=== PATIENT | female | born 1930 | race Caucasian/White ===

== ENCOUNTER 2019-03-01 20:02 | Inpatient (IN) | payer MEDICARE, MEDICAID ==
[~2019-03-01] VITALS: Ht 157.5 cm; Wt 64.0 kg
[2019-03-01] MEDS ORDERED: ONDANSETRON HCL 4MG/2ML INJ IV STA (20:26)
[2019-03-01] MEDS ORDERED: SODIUM CHLORIDE 0.9% 1,000 ML IV ONE (20:26)
[2019-03-01] MEDS ORDERED: MORPHINE SULFATE 4 MG/ML CPJ (NOT FOR IM USE) IV STA (20:26)
[2019-03-01] MEDS ORDERED: FAMOTIDINE 20MG/2ML VIAL IV ONE (20:30)
[2019-03-01 21:43] LABS: MEAN CORPUSCULAR VOLUME 91.5 fL (81.0-99.0); MEAN PLATELET VOLUME 9.2 fl (7.4-10.4); PLATELET 181 x1000/uL (130-400); RED BLOOD CELL COUNT 2.17 mill/uL (4.2-5.4); RED CELL DISTRIBUTION WIDTH 13.6 % (11.6-14.6)
[2019-03-01 21:45] LABS: HEMATOCRIT. 19.9 % (36.0-48.0); HEMOGLOBIN. 6.7 g/dL (12.0-16.0)
[2019-03-01 21:48] LABS: CHLORIDE 115 mEq/L (98-107)
[2019-03-01 21:54] LABS: INR 1.2; PARTIAL THROMBOPLASTIN TIME 28.5 sec (23.4-31.0); PROTHROMBIN TIME 12.8 sec (9.6-11.0)
[2019-03-01 22:00] LABS: PLATELET ESTIMATE NORMAL
[2019-03-01] MEDS ORDERED: KCL 20MEQ/100ML PREMIX 100 ML IV ONE (22:15)
[2019-03-01] MEDS ORDERED: PANTOPRAZOLE SODIUM 40 MG/VIAL IV NR (22:30)
[2019-03-01] MEDS: PANTOPRAZOLE 80 MG in SODIUM CHLORIDE 0.9% 100 ML IV SCH (23:26)
[2019-03-02] VITALS (91 sets, daily range): BP systolic 65–163; BP diastolic 23–109
[2019-03-02] MEDS ORDERED: ONDANSETRON HCL 4MG/2ML INJ IV PRN (00:15)
[2019-03-02] MEDS: MVI, ADULT NO.1 10 ML, FOLIC ACID 1 MG, THIAMINE HCL 100 MG in SODIUM CHLORIDE 0.9% 1,0... IV NR ×8 (01:21→05:29)
[2019-03-02] MEDS: SODIUM CHLORIDE 0.9% 1,000 ML IV SCH ×2 (04:04→23:31)
[2019-03-02 05:13] LABS: EOSINOPHILS % 0.1 % (0.0-5.0); LYMPHOCYTES % 8.2 % (20.0-50.0); MEAN CORPUSCULAR HEMOGLOBIN 30.6 pg (28.0-32.0); MEAN CORPUSCULAR VOLUME 92.4 fL (81.0-99.0); MEAN PLATELET VOLUME 9.9 fl (7.4-10.4); MONOCYTES % 11.7 % (2.0-8.0); PLATELET 174 x1000/uL (130-400); RED BLOOD CELL COUNT 1.95 mill/uL (4.2-5.4); RED CELL DISTRIBUTION WIDTH 13.6 % (11.6-14.6)
[2019-03-02] MEDS ORDERED: OMEP20TA2 PO (05:27)
[2019-03-02] MEDS ORDERED: LEVO25TA7 PO (05:27)
[2019-03-02] MEDS: PANTOPRAZOLE 80 MG in SODIUM CHLORIDE 0.9% 100 ML IV SCH ×3 (05:29→20:07)
[2019-03-02 05:37] LABS: CREATINE KINASE 184 IU/L (26-192)
[2019-03-02 05:41] LABS: CREATINE KINASE MB FRACTION 2.9 ng/mL (0.5-3.6)
[2019-03-02 06:25] LABS: CHLORIDE 116 mEq/L (98-107)
[2019-03-02] MEDS ORDERED: OCTREOTIDE ACETATE 50 MCG/ML 1ML IV NR (09:00)
[2019-03-02] MEDS: OCTREOTIDE 1,000 MCG in SODIUM CHLORIDE 0.9% 98 ML IV SCH (09:27)
[2019-03-02] MEDS: PIPERACILLIN/TAZ 3.375G PREMIX 50 ML IV SCH ×3 (10:45→21:55)
[2019-03-02 12:16] LABS: BASOPHILS % 0.1 % (0.0-2.0); EOSINOPHILS % 0.3 % (0.0-5.0); HEMATOCRIT. 25.5 % (36.0-48.0); HEMOGLOBIN. 8.8 g/dL (12.0-16.0); LYMPHOCYTES % 8.6 % (20.0-50.0); MEAN CORPUSCULAR HEMOGLOBIN 30.7 pg (28.0-32.0); MEAN CORPUSCULAR VOLUME 89.1 fL (81.0-99.0); MEAN PLATELET VOLUME 9.6 fl (7.4-10.4); MONOCYTES % 10.6 % (2.0-8.0); NEUTROPHILS % 80.4 % (40.0-76.0); PLATELET 164 x1000/uL (130-400); RED BLOOD CELL COUNT 2.86 mill/uL (4.2-5.4); RED CELL DISTRIBUTION WIDTH 14.2 % (11.6-14.6)
[2019-03-02 12:52] LABS: CLARITY URINE CLEAR (CLEAR); COLOR URINE DARK YELLOW (YELLOW); KETONES URINE 1+ (NEGATIVE); LEUKOCYTE ESTERASE URINE NEGATIVE (NEGATIVE); NITRITE URINE NEGATIVE (NEGATIVE); OCCULT BLOOD URINE TRACE (NEGATIVE); PH URINE 5.5 (4.5-8.0); PROTEIN URINE TRACE (NEGATIVE); SPECIFIC GRAVITY URINE 1.027 (1.005-1.030)
[2019-03-02] MEDS ORDERED: BACTERIOSTATIC SODIUM CHLORIDE 0.9% 30ML VIAL IJ ONE (13:28)
[2019-03-02 13:38] LABS: *AMPHETAMINES SCREEN URINE NEGATIVE (NEGATIVE); *BARBITURATES SCREEN URINE NEGATIVE (NEGATIVE); *BENZODIAZEPINES SCREEN URINE NEGATIVE (NEGATIVE); *COCAINE SCREEN URINE NEGATIVE (NEGATIVE)
[2019-03-02 13:39] LABS: METHADONE URINE SCREEN NEGATIVE (NEGATIVE); OPIATES URINE SCREEN NEGATIVE (NEGATIVE); PHENCYCLIDINE URINE SCREEN NEGATIVE (NEGATIVE)
[2019-03-02 13:41] LABS: CANNABINOID URINE SCREEN NEGATIVE (NEGATIVE)
[2019-03-02] MEDS ORDERED: RACEPINEPHRINE 2.25% 0.5ML NEB VIAL HHN PRN (14:45)
[2019-03-02] MEDS: IPRATROPIUM/ALBUTEROL 0.5-3(2.5)MG/3ML NEB INH PRN (14:45)
[2019-03-02] MEDS ORDERED: FENTANYL CITRATE/PF 50MCG/ML 2ML VIAL ONE (15:35)
[2019-03-02] MEDS ORDERED: MIDAZOLAM HCL 5 MG/5 ML VIAL ONE (15:35)
[2019-03-02] MEDS ORDERED: SIMETHICONE 40 MG/0.6 ML 30ML ONE (15:35)
[2019-03-02] MEDS ORDERED: MIDAZOLAM HCL 5 MG/5 ML VIAL IV PRN (16:18)
[2019-03-02] MEDS: PHENYLEPHRINE 40 MG in DEXT 5% WATER 246 ML IV PRN ×2 (16:19→23:33)
[2019-03-02] MEDS ORDERED: SODIUM BICARBONATE 4% (2.4MEQ) 5ML VIAL IV ONE (17:54)
[2019-03-02] MEDS ORDERED: IOHEXOL-300 100 ML BOTTLE ONE (17:54)
[2019-03-02] MEDS ORDERED: LIDOCAINE HCL 1% 20ML VIAL (Pyxis) INJ ONE (17:54)
[2019-03-02 20:38] LABS: HEMATOCRIT. 30.8 % (36.0-48.0); HEMOGLOBIN. 10.8 g/dL (12.0-16.0); MEAN CORPUSCULAR HEMOGLOBIN 31.1 pg (28.0-32.0); MEAN CORPUSCULAR VOLUME 88.9 fL (81.0-99.0); MEAN PLATELET VOLUME 8.7 fl (7.4-10.4); PLATELET 162 x1000/uL (130-400); RED BLOOD CELL COUNT 3.47 mill/uL (4.2-5.4); RED CELL DISTRIBUTION WIDTH 14.8 % (11.6-14.6)
[2019-03-02 20:52] LABS: CREATINE KINASE MB FRACTION 2.6 ng/mL (0.5-3.6)
[2019-03-02 21:01] LABS: NUCLEATED RED BLOOD CELLS 5 /100 WBC; PLATELET ESTIMATE NORMAL
[2019-03-03] VITALS (93 sets, daily range): BP systolic 62–137; BP diastolic 32–77
[2019-03-03] MEDS: ACETAMINOPHEN 650MG SUPP PR PRN (00:25)
[2019-03-03] MEDS: PANTOPRAZOLE 80 MG in SODIUM CHLORIDE 0.9% 100 ML IV SCH ×3 (02:48→20:34)
[2019-03-03] MEDS: PIPERACILLIN/TAZ 3.375G PREMIX 50 ML IV SCH ×4 (04:01→20:57)
[2019-03-03] MEDS: OCTREOTIDE 1,000 MCG in SODIUM CHLORIDE 0.9% 98 ML IV SCH (04:01)
[2019-03-03] MEDS: SODIUM CHLORIDE 0.9% 1,000 ML IV SCH (04:02)
[2019-03-03 06:50] LABS: BASOPHILS % 0.1 % (0.0-2.0); EOSINOPHILS % 0.1 % (0.0-5.0); HEMATOCRIT. 27.2 % (36.0-48.0); HEMOGLOBIN. 9.4 g/dL (12.0-16.0); LYMPHOCYTES % 7.4 % (20.0-50.0); MEAN CORPUSCULAR HEMOGLOBIN 31.1 pg (28.0-32.0); MEAN CORPUSCULAR VOLUME 89.6 fL (81.0-99.0); MEAN PLATELET VOLUME 9.8 fl (7.4-10.4); MONOCYTES % 7.1 % (2.0-8.0); NEUTROPHILS % 85.3 % (40.0-76.0); PLATELET 139 x1000/uL (130-400); RED BLOOD CELL COUNT 3.03 mill/uL (4.2-5.4); RED CELL DISTRIBUTION WIDTH 14.9 % (11.6-14.6)
[2019-03-03 06:57] LABS: CHLORIDE 120 mEq/L (98-107)
[2019-03-03 07:03] LABS: LDL CHOLESTEROL 31 mg/dL (5-100)
[2019-03-03 07:05] LABS: HDL CHOLESTEROL 32 mg/dL (40-59)
[2019-03-03] MEDS: SODIUM CHLORIDE 0.45% 1,000 ML IV SCH ×2 (08:31→20:57)
[2019-03-03] MEDS ORDERED: KCL 20MEQ/100ML PREMIX 100 ML IV SCH (09:00)
[2019-03-03] MEDS: PHENYLEPHRINE 40 MG in DEXT 5% WATER 246 ML IV PRN ×2 (10:57→22:22)
[2019-03-03] MEDS: MORPHINE SULFATE 2 MG/ML CPJ (NOT FOR IM USE) IV PRN (22:05)
[2019-03-04] VITALS (97 sets, daily range): BP systolic 81–134; BP diastolic 37–95
[2019-03-04] MEDS: OCTREOTIDE 1,000 MCG in SODIUM CHLORIDE 0.9% 98 ML IV SCH ×2 (00:35→21:03)
[2019-03-04] MEDS: PIPERACILLIN/TAZ 3.375G PREMIX 50 ML IV SCH ×4 (04:53→21:03)
[2019-03-04] MEDS: SODIUM CHLORIDE 0.45% 1,000 ML IV SCH ×2 (04:53→15:14)
[2019-03-04 05:17] LABS: BASOPHILS % 0.1 % (0.0-2.0); EOSINOPHILS % 2.8 % (0.0-5.0); HEMATOCRIT. 26.9 % (36.0-48.0); HEMOGLOBIN. 9.2 g/dL (12.0-16.0); LYMPHOCYTES % 7.2 % (20.0-50.0); MEAN CORPUSCULAR HEMOGLOBIN 30.7 pg (28.0-32.0); MEAN PLATELET VOLUME 9.3 fl (7.4-10.4); MONOCYTES % 7.8 % (2.0-8.0); NEUTROPHILS % 82.1 % (40.0-76.0); PLATELET 164 x1000/uL (130-400); RED BLOOD CELL COUNT 2.99 mill/uL (4.2-5.4); RED CELL DISTRIBUTION WIDTH 15.1 % (11.6-14.6)
[2019-03-04 05:29] LABS: CHLORIDE 116 mEq/L (98-107)
[2019-03-04] MEDS: PANTOPRAZOLE 80 MG in SODIUM CHLORIDE 0.9% 100 ML IV SCH ×2 (06:54→18:02)
[2019-03-04] MEDS: PHENYLEPHRINE 40 MG in DEXT 5% WATER 246 ML IV PRN (09:10)
[2019-03-04] MEDS ORDERED: POTASSIUM CHLORIDE INJ 40 MEQ in DEXT 5% WATER 250 ML IV SCH (11:00)
[2019-03-04] MEDS ORDERED: MIDAZOLAM HCL 5 MG/5 ML VIAL ONE (12:21)
[2019-03-04] MEDS ORDERED: FENTANYL CITRATE/PF 50MCG/ML 2ML VIAL ONE (12:21)
[2019-03-04] MEDS ORDERED: MIDAZOLAM HCL 5 MG/5 ML VIAL IV NR (12:40)
[2019-03-04] MEDS ORDERED: BACTERIOSTATIC SODIUM CHLORIDE 0.9% 30ML VIAL IJ ONE (13:20)
[2019-03-04] MEDS: MORPHINE SULFATE 2 MG/ML CPJ (NOT FOR IM USE) IV PRN (16:19)
[2019-03-05] VITALS (89 sets, daily range): BP systolic 84–137; BP diastolic 35–104
[2019-03-05] MEDS: PANTOPRAZOLE 80 MG in SODIUM CHLORIDE 0.9% 100 ML IV SCH ×2 (03:16→14:58)
[2019-03-05] MEDS: PIPERACILLIN/TAZ 3.375G PREMIX 50 ML IV SCH ×4 (04:52→21:15)
[2019-03-05] MEDS: SODIUM CHLORIDE 0.45% 1,000 ML IV SCH ×2 (05:13→14:59)
[2019-03-05] MEDS: PHENYLEPHRINE 40 MG in DEXT 5% WATER 246 ML IV PRN (05:13)
[2019-03-05 05:33] LABS: HEMATOCRIT. 25.2 % (36.0-48.0); HEMOGLOBIN. 8.7 g/dL (12.0-16.0); MEAN CORPUSCULAR HEMOGLOBIN 30.9 pg (28.0-32.0); MEAN CORPUSCULAR VOLUME 89.7 fL (81.0-99.0); MEAN PLATELET VOLUME 8.9 fl (7.4-10.4); PLATELET 186 x1000/uL (130-400); RED BLOOD CELL COUNT 2.81 mill/uL (4.2-5.4); RED CELL DISTRIBUTION WIDTH 15.3 % (11.6-14.6)
[2019-03-05 05:43] LABS: CHLORIDE 110 mEq/L (98-107)
[2019-03-05] MEDS ORDERED: IOHEXOL-300 50 ML BOTTLE IV ONE (09:38)
[2019-03-05] MEDS ORDERED: IOHEXOL-300 100 ML BOTTLE ONE (09:41)
[2019-03-05] MEDS: SUCRALFATE 1 G/10 ML UDC PO SCH ×3 (12:29→21:14)
[2019-03-05 14:37] LABS: PLATELET ESTIMATE NORMAL
[2019-03-05] MEDS: BUDESONIDE 0.5MG/2ML NEB HHN SCH ×2 (14:44→20:45)
[2019-03-05] MEDS: IPRATROPIUM/ALBUTEROL 0.5-3(2.5)MG/3ML NEB HHN SCH ×2 (14:44→20:45)
[2019-03-05] MEDS: FLUCONAZOLE 200 MG/100ML BAG 100 ML IV SCH (16:24)
[2019-03-06] VITALS (37 sets, daily range): BP systolic 106–149; BP diastolic 38–76
[2019-03-06] MEDS: PANTOPRAZOLE 80 MG in SODIUM CHLORIDE 0.9% 100 ML IV SCH ×3 (00:19→18:46)
[2019-03-06] MEDS: SODIUM CHLORIDE 0.45% 1,000 ML IV SCH ×2 (00:19→14:30)
[2019-03-06] MEDS: IPRATROPIUM/ALBUTEROL 0.5-3(2.5)MG/3ML NEB HHN SCH ×4 (00:48→20:30)
[2019-03-06] MEDS: PIPERACILLIN/TAZ 3.375G PREMIX 50 ML IV SCH ×4 (03:48→21:13)
[2019-03-06 06:35] LABS: HEMATOCRIT. 26.1 % (36.0-48.0); HEMOGLOBIN. 8.6 g/dL (12.0-16.0); MEAN CORPUSCULAR HEMOGLOBIN 29.9 pg (28.0-32.0); MEAN CORPUSCULAR VOLUME 91.3 fL (81.0-99.0); MEAN PLATELET VOLUME 8.9 fl (7.4-10.4); PLATELET 205 x1000/uL (130-400); RED BLOOD CELL COUNT 2.86 mill/uL (4.2-5.4); RED CELL DISTRIBUTION WIDTH 14.9 % (11.6-14.6)
[2019-03-06 07:26] LABS: CHLORIDE 108 mEq/L (98-107)
[2019-03-06] MEDS: SUCRALFATE 1 G/10 ML UDC PO SCH ×4 (07:47→21:13)
[2019-03-06] MEDS: BUDESONIDE 0.5MG/2ML NEB HHN SCH ×2 (08:39→20:29)
[2019-03-06] MEDS ORDERED: POTASSIUM CHLORIDE 20MEQ TABLET SR PO NR (10:04)
[2019-03-06 12:22] LABS: PLATELET ESTIMATE NORMAL
[2019-03-06] MEDS: IPRATROPIUM/ALBUTEROL 0.5-3(2.5)MG/3ML NEB INH PRN (12:31)
[2019-03-06] MEDS: FLUCONAZOLE 200 MG/100ML BAG 100 ML IV SCH (15:15)
[2019-03-07] VITALS (20 sets, daily range): BP systolic 81–146; BP diastolic 44–67
[2019-03-07] MEDS: IPRATROPIUM/ALBUTEROL 0.5-3(2.5)MG/3ML NEB HHN SCH ×4 (00:22→20:55)
[2019-03-07] MEDS: SODIUM CHLORIDE 0.45% 1,000 ML IV SCH ×2 (01:48→16:59)
[2019-03-07] MEDS: IPRATROPIUM/ALBUTEROL 0.5-3(2.5)MG/3ML NEB INH PRN (03:20)
[2019-03-07] MEDS: PIPERACILLIN/TAZ 3.375G PREMIX 50 ML IV SCH ×4 (04:20→21:22)
[2019-03-07 05:17] LABS: HIV SCREEN 4G Non Reactive (Non Reactive)
[2019-03-07] MEDS: PANTOPRAZOLE 80 MG in SODIUM CHLORIDE 0.9% 100 ML IV SCH (05:31)
[2019-03-07 05:53] LABS: HEMATOCRIT. 27.3 % (36.0-48.0); HEMOGLOBIN. 9.3 g/dL (12.0-16.0); MEAN CORPUSCULAR HEMOGLOBIN 30.6 pg (28.0-32.0); MEAN CORPUSCULAR VOLUME 89.7 fL (81.0-99.0); MEAN PLATELET VOLUME 8.6 fl (7.4-10.4); PLATELET 263 x1000/uL (130-400); RED BLOOD CELL COUNT 3.05 mill/uL (4.2-5.4); RED CELL DISTRIBUTION WIDTH 14.5 % (11.6-14.6)
[2019-03-07 06:07] LABS: CHLORIDE 101 mEq/L (98-107)
[2019-03-07] MEDS: BUDESONIDE 0.5MG/2ML NEB HHN SCH ×2 (07:51→20:55)
[2019-03-07] MEDS: SUCRALFATE 1 G/10 ML UDC PO SCH ×4 (09:04→21:18)
[2019-03-07] MEDS ORDERED: POTASSIUM CHLORIDE 20MEQ TABLET SR PO NR (10:15)
[2019-03-07] MEDS ORDERED: POTASSIUM CHLORIDE INJ 40 MEQ in DEXT 5% WATER 250 ML IV NR (12:00)
[2019-03-07] MEDS: FLUCONAZOLE 200 MG/100ML BAG 100 ML IV SCH (14:50)
[2019-03-07 15:26] LABS: PLATELET ESTIMATE NORMAL
[2019-03-08] VITALS: BP 126/52
[2019-03-08] MEDS: IPRATROPIUM/ALBUTEROL 0.5-3(2.5)MG/3ML NEB HHN SCH ×4 (02:20→19:56)
[2019-03-08 04:00] VITALS: BP 123/55
[2019-03-08] MEDS: PIPERACILLIN/TAZ 3.375G PREMIX 50 ML IV SCH ×3 (04:17→16:41)
[2019-03-08] MEDS: SODIUM CHLORIDE 0.45% 1,000 ML IV SCH ×2 (04:17→19:34)
[2019-03-08] MEDS: OMEPRAZOLE 20MG CAPSULE EXTENDED RELEASE PO SCH (06:25)
[2019-03-08] MEDS: SUCRALFATE 1 G/10 ML UDC PO SCH ×4 (06:25→21:00)
[2019-03-08 06:36] LABS: HEMATOCRIT. 25.2 % (36.0-48.0); HEMOGLOBIN. 8.7 g/dL (12.0-16.0); MEAN CORPUSCULAR HEMOGLOBIN 30.5 pg (28.0-32.0); MEAN CORPUSCULAR VOLUME 88.3 fL (81.0-99.0); MEAN PLATELET VOLUME 8.6 fl (7.4-10.4); PLATELET 314 x1000/uL (130-400); RED BLOOD CELL COUNT 2.86 mill/uL (4.2-5.4); RED CELL DISTRIBUTION WIDTH 14.4 % (11.6-14.6)
[2019-03-08 06:38] LABS: CHLORIDE 100 mEq/L (98-107)
[2019-03-08 08:00] VITALS: BP 129/52
[2019-03-08] MEDS: BUDESONIDE 0.5MG/2ML NEB HHN SCH (08:55)
[2019-03-08] MEDS ORDERED: POTASSIUM CHLORIDE 20MEQ TABLET SR PO NR (09:00)
[2019-03-08] MEDS ORDERED: POTASSIUM CHLORIDE INJ 40 MEQ in DEXT 5% WATER 250 ML IV NR (09:30)
[2019-03-08 12:00] VITALS: BP 132/53
[2019-03-08] MEDS: FLUCONAZOLE 200 MG/100ML BAG 100 ML IV SCH (15:25)
[2019-03-08 15:59] LABS: PHOSPHORUS 1.5 mg/dL (2.5-4.9)
[2019-03-08 16:24] VITALS: BP 119/51
[2019-03-08 17:33] LABS: PLATELET ESTIMATE NORMAL
[2019-03-08] MEDS: CEFTRIAXONE 1 G PREMIX 50 ML IV SCH (18:40)
[2019-03-08 20:00] VITALS: BP 126/52
[2019-03-08] MEDS: GUAIFENESIN 600MG ER TABLET PO SCH (21:00)
[2019-03-08] MEDS ORDERED: POTASSIUM CHLORIDE INJ 40 MEQ in DEXT 5% WATER 250 ML IV SCH (23:00)
[2019-03-09] VITALS (7 sets, daily range): BP systolic 118–131; BP diastolic 50–59
[2019-03-09] MEDS: IPRATROPIUM/ALBUTEROL 0.5-3(2.5)MG/3ML NEB HHN SCH ×5 (02:16→20:52)
[2019-03-09] MEDS: OMEPRAZOLE 20MG CAPSULE EXTENDED RELEASE PO SCH (06:21)
[2019-03-09] MEDS: SUCRALFATE 1 G/10 ML UDC PO SCH ×4 (06:21→20:06)
[2019-03-09 06:39] LABS: HEMATOCRIT. 26.2 % (36.0-48.0); MEAN CORPUSCULAR HEMOGLOBIN 30.3 pg (28.0-32.0); MEAN CORPUSCULAR VOLUME 88.7 fL (81.0-99.0); MEAN PLATELET VOLUME 8.3 fl (7.4-10.4); PLATELET 356 x1000/uL (130-400); RED BLOOD CELL COUNT 2.96 mill/uL (4.2-5.4); RED CELL DISTRIBUTION WIDTH 14.4 % (11.6-14.6)
[2019-03-09 07:56] LABS: CHLORIDE 100 mEq/L (98-107)
[2019-03-09 08:14] LABS: PHOSPHORUS 1.5 mg/dL (2.5-4.9)
[2019-03-09] MEDS: GUAIFENESIN 600MG ER TABLET PO SCH ×2 (08:30→20:06)
[2019-03-09 08:34] LABS: CLARITY URINE CLEAR (CLEAR); COLOR URINE YELLOW (YELLOW); KETONES URINE TRACE (NEGATIVE); LEUKOCYTE ESTERASE URINE NEGATIVE (NEGATIVE); NITRITE URINE NEGATIVE (NEGATIVE); OCCULT BLOOD URINE TRACE (NEGATIVE); PH URINE >=9.0 (4.5-8.0); PROTEIN URINE NEGATIVE (NEGATIVE); SPECIFIC GRAVITY URINE 1.008 (1.005-1.030)
[2019-03-09] MEDS ORDERED: POTASSIUM PHOS,M-BASIC-D-BASIC 20 MMOL in DEXT 5% WATER 243.3333 ML IV NR (10:30)
[2019-03-09 10:35] LABS: BG CARBOXYHEMOGLOBIN 0.3 % (0.5-1.5); BG DEOXYHEMOGLOBIN 6.5 % (0.0-5.0); BG HCO3 ACT 31.6 mmol/L (22.0-26.0); BG METHEMOGLOBIN 0.1 % (0.0-1.5); BG OXYGEN SATURATION 93.5 % (92.0-98.5); BG OXYHEMOGLOBIN 93.1 % (94.0-97.0); BG PH 7.515 (7.350-7.450); BG PO2 62.8 mmHg (75.0-100.0); BG SAMPLE SITE RIGHT RADIAL; BG TOTAL HEMOGLOBIN 10.4 g/dL (12.0-18.0); BG VENT MODE NASAL CANNULA
[2019-03-09] MEDS: FLUCONAZOLE 200 MG/100ML BAG 100 ML IV SCH (15:15)
[2019-03-09] MEDS: CEFTRIAXONE 1 G PREMIX 50 ML IV SCH (18:42)
[2019-03-09] MEDS: ACETAMINOPHEN 650MG SUPP PR PRN (20:06)
[2019-03-09] MEDS: BUDESONIDE 0.5MG/2ML NEB HHN SCH (20:52)
[2019-03-09] MEDS: ACETYLCYSTEINE 100MG/ML 10% VIAL 4ML INH SCH (20:52)
[2019-03-10] VITALS (7 sets, daily range): BP systolic 112–134; BP diastolic 51–61
[2019-03-10] MEDS: SODIUM CHLORIDE 0.45% 1,000 ML IV SCH ×2 (00:03→17:35)
[2019-03-10] MEDS: IPRATROPIUM/ALBUTEROL 0.5-3(2.5)MG/3ML NEB HHN SCH ×4 (01:09→21:44)
[2019-03-10 04:48] LABS: PLATELET ESTIMATE NORMAL
[2019-03-10 05:54] LABS: CHLORIDE 103 mEq/L (98-107)
[2019-03-10 06:00] LABS: HEMATOCRIT. 24.9 % (36.0-48.0); HEMOGLOBIN. 8.3 g/dL (12.0-16.0); MEAN CORPUSCULAR HEMOGLOBIN 30.1 pg (28.0-32.0); MEAN CORPUSCULAR VOLUME 89.9 fL (81.0-99.0); MEAN PLATELET VOLUME 8.3 fl (7.4-10.4); PLATELET 384 x1000/uL (130-400); RED BLOOD CELL COUNT 2.77 mill/uL (4.2-5.4); RED CELL DISTRIBUTION WIDTH 14.8 % (11.6-14.6)
[2019-03-10 06:05] LABS: PHOSPHORUS 3.3 mg/dL (2.5-4.9)
[2019-03-10] MEDS: OMEPRAZOLE 20MG CAPSULE EXTENDED RELEASE PO SCH (06:33)
[2019-03-10] MEDS: SUCRALFATE 1 G/10 ML UDC PO SCH ×4 (06:33→20:47)
[2019-03-10] MEDS: ACETYLCYSTEINE 100MG/ML 10% VIAL 4ML INH SCH (09:54)
[2019-03-10] MEDS: BUDESONIDE 0.5MG/2ML NEB HHN SCH ×2 (09:55→21:43)
[2019-03-10 10:09] LABS: BG BASE EXCESS 5.2 mmol/L (-2.0-2.0); BG FRACTION INSPIRED OXYGEN 21; BG METHEMOGLOBIN 0.4 % (0.0-1.5); BG OXYHEMOGLOBIN 87.6 % (94.0-97.0); BG PCO2 39.5 mmHg (35.0-45.0); BG PH 7.484 (7.350-7.450); BG PO2 50.2 mmHg (75.0-100.0); BG SAMPLE SITE RIGHT BRACHIAL; BG TOTAL HEMOGLOBIN 9.9 g/dL (12.0-18.0); BG VENT MODE ROOM AIR
[2019-03-10] MEDS: LEVOFLOXACIN 250MG PREMIX 50 ML IV SCH (10:34)
[2019-03-10] MEDS: POTASSIUM CHLORIDE 20MEQ/PACKET PO SCH ×2 (10:36→17:28)
[2019-03-10] MEDS: GUAIFENESIN 600MG ER TABLET PO SCH ×2 (10:40→20:47)
[2019-03-10 12:57] LABS: NUCLEATED RED BLOOD CELLS 1 /100 WBC; PLATELET ESTIMATE NORMAL
[2019-03-10] MEDS: FLUCONAZOLE 200 MG/100ML BAG 100 ML IV SCH (14:57)
[2019-03-10] MEDS ORDERED: FAMOTIDINE 20MG TABLET PO SCH (21:00)
[2019-03-10] MEDS ORDERED: POTASSIUM CHLORIDE 20MEQ/PACKET PO NR (22:30)
[2019-03-11] VITALS (7 sets, daily range): BP systolic 103–128; BP diastolic 51–88
[2019-03-11] MEDS: IPRATROPIUM/ALBUTEROL 0.5-3(2.5)MG/3ML NEB HHN SCH ×3 (01:27→12:56)
[2019-03-11] MEDS: LEVOTHYROXINE SODIUM 25MCG TABLET PO SCH (06:23)
[2019-03-11] MEDS: SUCRALFATE 1 G/10 ML UDC PO SCH ×4 (06:23→20:46)
[2019-03-11] MEDS ORDERED: DESMOPRESSIN ACETATE 4MCG/ML AMP SUBCUT SCH (08:00)
[2019-03-11 08:06] LABS: BASOPHILS % 0.5 % (0.0-2.0); EOSINOPHILS % 4.5 % (0.0-5.0); HEMOGLOBIN. 8.9 g/dL (12.0-16.0); LYMPHOCYTES % 9.4 % (20.0-50.0); MEAN CORPUSCULAR HEMOGLOBIN 30.7 pg (28.0-32.0); MEAN CORPUSCULAR VOLUME 89.4 fL (81.0-99.0); MEAN PLATELET VOLUME 8.3 fl (7.4-10.4); MONOCYTES % 5.6 % (2.0-8.0); PLATELET 444 x1000/uL (130-400); RED BLOOD CELL COUNT 2.91 mill/uL (4.2-5.4); RED CELL DISTRIBUTION WIDTH 14.5 % (11.6-14.6)
[2019-03-11 08:22] LABS: CHLORIDE 104 mEq/L (98-107)
[2019-03-11] MEDS: ACETYLCYSTEINE 100MG/ML 10% VIAL 4ML INH SCH (08:44)
[2019-03-11] MEDS: BUDESONIDE 0.5MG/2ML NEB HHN SCH ×2 (08:44→20:39)
[2019-03-11] MEDS: SODIUM CHLORIDE 0.45% 1,000 ML IV SCH ×2 (09:47→20:40)
[2019-03-11] MEDS: LEVOFLOXACIN 250MG PREMIX 50 ML IV SCH (09:48)
[2019-03-11] MEDS: POTASSIUM CHLORIDE 20MEQ/PACKET PO SCH ×2 (09:49→18:02)
[2019-03-11] MEDS: GUAIFENESIN 600MG ER TABLET PO SCH ×2 (09:49→20:46)
[2019-03-11] MEDS ORDERED: THROAT LOZENGES-BENZOCAINE/MENTH/CETYLPYRD CL LOZENGES MM PRN (16:15)
[2019-03-11] MEDS: OMEPRAZOLE 20MG CAPSULE EXTENDED RELEASE PO SCH (18:03)
[2019-03-11] MEDS: IPRATROPIUM/ALBUTEROL 0.5-3(2.5)MG/3ML NEB INH PRN (20:38)
[2019-03-12] VITALS: BP 128/57
[2019-03-12 04:00] VITALS: BP 115/51
[2019-03-12 06:08] LABS: BASOPHILS % 0.5 % (0.0-2.0); EOSINOPHILS % 4.8 % (0.0-5.0); HEMATOCRIT. 26.7 % (36.0-48.0); HEMOGLOBIN. 9.1 g/dL (12.0-16.0); LYMPHOCYTES % 8.7 % (20.0-50.0); MEAN CORPUSCULAR HEMOGLOBIN 30.3 pg (28.0-32.0); MEAN CORPUSCULAR VOLUME 89.4 fL (81.0-99.0); MEAN PLATELET VOLUME 8.2 fl (7.4-10.4); MONOCYTES % 7.1 % (2.0-8.0); NEUTROPHILS % 78.9 % (40.0-76.0); PLATELET 484 x1000/uL (130-400); RED BLOOD CELL COUNT 2.99 mill/uL (4.2-5.4); RED CELL DISTRIBUTION WIDTH 14.6 % (11.6-14.6)
[2019-03-12 06:39] LABS: CHLORIDE 96 mEq/L (98-107)
[2019-03-12] MEDS: OMEPRAZOLE 20MG CAPSULE EXTENDED RELEASE PO SCH ×2 (06:47→18:39)
[2019-03-12] MEDS: LEVOTHYROXINE SODIUM 25MCG TABLET PO SCH (06:47)
[2019-03-12] MEDS: SUCRALFATE 1 G/10 ML UDC PO SCH ×4 (06:47→21:18)
[2019-03-12] MEDS: GUAIFENESIN 600MG ER TABLET PO SCH ×2 (08:42→21:18)
[2019-03-12] MEDS: SODIUM CHLORIDE 0.9% 1,000 ML IV SCH ×2 (08:43→21:19)
[2019-03-12] MEDS: LEVOFLOXACIN 250MG PREMIX 50 ML IV SCH (08:43)
[2019-03-12] MEDS: IPRATROPIUM/ALBUTEROL 0.5-3(2.5)MG/3ML NEB INH PRN ×3 (09:10→20:56)
[2019-03-12] MEDS: BUDESONIDE 0.5MG/2ML NEB HHN SCH ×2 (09:10→20:58)
[2019-03-12 12:00] VITALS: BP 114/50
[2019-03-12 16:00] VITALS: BP 102/49
[2019-03-12 20:00] VITALS: BP 115/49
[2019-03-12 20:16] VITALS: BP 115/49
[2019-03-13] VITALS: BP 99/51
[2019-03-13 04:00] VITALS: BP 120/51
[2019-03-13] MEDS: SUCRALFATE 1 G/10 ML UDC PO SCH ×4 (05:31→20:53)
[2019-03-13] MEDS: OMEPRAZOLE 20MG CAPSULE EXTENDED RELEASE PO SCH ×2 (05:31→17:07)
[2019-03-13] MEDS: LEVOTHYROXINE SODIUM 25MCG TABLET PO SCH (05:31)
[2019-03-13 07:09] LABS: CHLORIDE 103 mEq/L (98-107)
[2019-03-13 07:36] LABS: BASOPHILS % 0.7 % (0.0-2.0); EOSINOPHILS % 3.5 % (0.0-5.0); HEMATOCRIT. 31.4 % (36.0-48.0); HEMOGLOBIN. 10.6 g/dL (12.0-16.0); LYMPHOCYTES % 7.5 % (20.0-50.0); MEAN CORPUSCULAR HEMOGLOBIN 30.1 pg (28.0-32.0); MEAN CORPUSCULAR VOLUME 89.4 fL (81.0-99.0); MEAN PLATELET VOLUME 8.2 fl (7.4-10.4); NEUTROPHILS % 81.3 % (40.0-76.0); PLATELET 511 x1000/uL (130-400); RED BLOOD CELL COUNT 3.52 mill/uL (4.2-5.4); RED CELL DISTRIBUTION WIDTH 14.3 % (11.6-14.6)
[2019-03-13 08:00] VITALS: BP 114/45
[2019-03-13] MEDS: GUAIFENESIN 600MG ER TABLET PO SCH ×2 (08:16→20:53)
[2019-03-13] MEDS: LEVOFLOXACIN 250MG PREMIX 50 ML IV SCH (08:16)
[2019-03-13 12:00] VITALS: BP 100/50
[2019-03-13 16:00] VITALS: BP 140/54
[2019-03-13 20:00] VITALS: BP 124/58
[2019-03-14] VITALS: BP 119/64
[2019-03-14 04:00] VITALS: BP 113/55
[2019-03-14] MEDS: SUCRALFATE 1 G/10 ML UDC PO SCH ×4 (05:58→21:17)
[2019-03-14] MEDS: LEVOTHYROXINE SODIUM 25MCG TABLET PO SCH (05:58)
[2019-03-14] MEDS: OMEPRAZOLE 20MG CAPSULE EXTENDED RELEASE PO SCH ×2 (05:59→16:58)
[2019-03-14 07:04] LABS: BASOPHILS % 1.4 % (0.0-2.0); EOSINOPHILS % 4.5 % (0.0-5.0); HEMATOCRIT. 28.7 % (36.0-48.0); HEMOGLOBIN. 9.7 g/dL (12.0-16.0); LYMPHOCYTES % 10.5 % (20.0-50.0); MEAN CORPUSCULAR VOLUME 88.8 fL (81.0-99.0); NEUTROPHILS % 71.6 % (40.0-76.0); PLATELET 445 x1000/uL (130-400); RED BLOOD CELL COUNT 3.23 mill/uL (4.2-5.4); RED CELL DISTRIBUTION WIDTH 14.4 % (11.6-14.6)
[2019-03-14 07:54] LABS: CHLORIDE 100 mEq/L (98-107)
[2019-03-14 08:00] LABS: PHOSPHORUS 2.9 mg/dL (2.5-4.9)
[2019-03-14] MEDS: LEVOFLOXACIN 250MG PREMIX 50 ML IV SCH (08:20)
[2019-03-14] MEDS: GUAIFENESIN 600MG ER TABLET PO SCH ×2 (08:20→21:17)
[2019-03-14 12:00] VITALS: BP 118/58
[2019-03-14 16:00] VITALS: BP 107/54
[2019-03-14 20:00] VITALS: BP 98/47
[2019-03-15] VITALS: BP 99/44
[2019-03-15 04:00] VITALS: BP 96/42
[2019-03-15] MEDS: LEVOTHYROXINE SODIUM 25MCG TABLET PO SCH (06:13)
[2019-03-15] MEDS: OMEPRAZOLE 20MG CAPSULE EXTENDED RELEASE PO SCH ×2 (06:13→17:25)
[2019-03-15] MEDS: SUCRALFATE 1 G/10 ML UDC PO SCH ×4 (06:13→22:30)
[2019-03-15 08:00] VITALS: BP 108/47
[2019-03-15] MEDS: GUAIFENESIN 600MG ER TABLET PO SCH ×2 (08:00→22:31)
[2019-03-15] MEDS: LEVOFLOXACIN 250MG PREMIX 50 ML IV SCH (08:00)
[2019-03-15] MEDS: IPRATROPIUM/ALBUTEROL 0.5-3(2.5)MG/3ML NEB INH PRN (09:44)
[2019-03-15 10:26] LABS: HEMATOCRIT 26.9 % (36.0-48.0); MEAN CORPUSCULAR VOLUME 89.1 fL (81.0-99.0); PLATELET 378 x1000/uL (130-400); RED BLOOD CELL COUNT 3.01 mill/uL (4.2-5.4); RED CELL DISTRIBUTION WIDTH 14.4 % (11.6-14.6)
[2019-03-15 10:41] LABS: CHLORIDE 97 mEq/L (98-107)
[2019-03-15 12:00] VITALS: BP 115/39
[2019-03-15 13:34] LABS: BG BASE EXCESS 1.4 mmol/L (-2.0-2.0); BG CARBOXYHEMOGLOBIN 0.3 % (0.5-1.5); BG DEOXYHEMOGLOBIN 9.6 % (0.0-5.0); BG FRACTION INSPIRED OXYGEN 21; BG HCO3 ACT 24.9 mmol/L (22.0-26.0); BG METHEMOGLOBIN 0.3 % (0.0-1.5); BG OXYGEN SATURATION 90.3 % (92.0-98.5); BG OXYHEMOGLOBIN 89.8 % (94.0-97.0); BG PCO2 35.2 mmHg (35.0-45.0); BG PH 7.468 (7.350-7.450); BG PO2 55.4 mmHg (75.0-100.0); BG SAMPLE SITE RIGHT BRACHIAL; BG TOTAL HEMOGLOBIN 9.8 g/dL (12.0-18.0); BG VENT MODE ROOM AIR
[2019-03-15 15:44] VITALS: BP 105/51
[2019-03-15 20:00] VITALS: BP 100/66
[2019-03-16] VITALS: BP_SYST 100; BP_SYST 102; BP_DIAS 57; BP_DIAS 58
[2019-03-16 05:56] LABS: CHLORIDE 100 mEq/L (98-107)
[2019-03-16] MEDS: LEVOTHYROXINE SODIUM 25MCG TABLET PO SCH (06:17)
[2019-03-16] MEDS: SUCRALFATE 1 G/10 ML UDC PO SCH ×4 (06:17→20:57)
[2019-03-16] MEDS: OMEPRAZOLE 20MG CAPSULE EXTENDED RELEASE PO SCH ×2 (06:18→16:57)
[2019-03-16 06:27] LABS: HEMOGLOBIN. 8.9 g/dL (12.0-16.0); MEAN CORPUSCULAR HEMOGLOBIN 30.3 pg (28.0-32.0); MEAN CORPUSCULAR VOLUME 88.6 fL (81.0-99.0); MEAN PLATELET VOLUME 8.3 fl (7.4-10.4); PLATELET 388 x1000/uL (130-400); RED BLOOD CELL COUNT 2.93 mill/uL (4.2-5.4); RED CELL DISTRIBUTION WIDTH 14.3 % (11.6-14.6)
[2019-03-16 08:00] VITALS: BP 96/45
[2019-03-16] MEDS: GUAIFENESIN 600MG ER TABLET PO SCH ×2 (08:37→20:57)
[2019-03-16] MEDS: LEVOFLOXACIN 250MG PREMIX 50 ML IV SCH (08:37)
[2019-03-16] MEDS: IPRATROPIUM/ALBUTEROL 0.5-3(2.5)MG/3ML NEB INH PRN ×3 (09:09→16:33)
[2019-03-16 09:55] LABS: PLATELET ESTIMATE NORMAL
[2019-03-16 12:29] VITALS: BP 104/44
[2019-03-16 16:32] VITALS: BP 104/43
[2019-03-16 20:00] VITALS: BP_SYST 104; BP_SYST 105; BP_DIAS 50; BP_DIAS 52
[2019-03-17] VITALS (8 sets, daily range): BP systolic 91–120; BP diastolic 46–75
[2019-03-17] MEDS: LEVOTHYROXINE SODIUM 25MCG TABLET PO SCH (06:00)
[2019-03-17] MEDS: OMEPRAZOLE 20MG CAPSULE EXTENDED RELEASE PO SCH ×2 (06:00→17:21)
[2019-03-17] MEDS: SUCRALFATE 1 G/10 ML UDC PO SCH ×4 (06:00→22:22)
[2019-03-17 06:46] LABS: HEMATOCRIT. 25.6 % (36.0-48.0); HEMOGLOBIN. 8.7 g/dL (12.0-16.0); MEAN CORPUSCULAR HEMOGLOBIN 29.8 pg (28.0-32.0); MEAN CORPUSCULAR VOLUME 88.3 fL (81.0-99.0); MEAN PLATELET VOLUME 8.3 fl (7.4-10.4); PLATELET 333 x1000/uL (130-400); RED CELL DISTRIBUTION WIDTH 14.4 % (11.6-14.6)
[2019-03-17 07:57] LABS: CHLORIDE 99 mEq/L (98-107)
[2019-03-17 08:05] LABS: PHOSPHORUS 3.2 mg/dL (2.5-4.9)
[2019-03-17] MEDS: LEVOFLOXACIN 250MG PREMIX 50 ML IV SCH (09:03)
[2019-03-17] MEDS: GUAIFENESIN 600MG ER TABLET PO SCH ×2 (09:03→22:23)
[2019-03-17] MEDS: METHYLPREDNISOLONE SOD SUCC 40 MG/ML VIAL IV SCH ×2 (12:25→22:28)
[2019-03-17 13:54] LABS: PLATELET ESTIMATE NORMAL
[2019-03-18] VITALS: BP 113/56
[2019-03-18 04:00] VITALS: BP 128/89
[2019-03-18] MEDS: OMEPRAZOLE 20MG CAPSULE EXTENDED RELEASE PO SCH ×2 (05:57→17:21)
[2019-03-18] MEDS: SUCRALFATE 1 G/10 ML UDC PO SCH ×4 (05:57→22:03)
[2019-03-18] MEDS: LEVOTHYROXINE SODIUM 25MCG TABLET PO SCH (05:57)
[2019-03-18] MEDS: METHYLPREDNISOLONE SOD SUCC 40 MG/ML VIAL IV SCH ×3 (06:00→22:51)
[2019-03-18 06:55] LABS: BASOPHILS % 0.3 % (0.0-2.0); EOSINOPHILS % 0.1 % (0.0-5.0); HEMATOCRIT. 26.4 % (36.0-48.0); LYMPHOCYTES % 13.2 % (20.0-50.0); MEAN CORPUSCULAR VOLUME 87.9 fL (81.0-99.0); MEAN PLATELET VOLUME 8.4 fl (7.4-10.4); MONOCYTES % 3.5 % (2.0-8.0); NEUTROPHILS % 82.9 % (40.0-76.0); PLATELET 353 x1000/uL (130-400); RED CELL DISTRIBUTION WIDTH 14.5 % (11.6-14.6)
[2019-03-18 06:57] LABS: CHLORIDE 100 mEq/L (98-107)
[2019-03-18 08:00] VITALS: BP 113/51
[2019-03-18] MEDS: GUAIFENESIN 600MG ER TABLET PO SCH ×2 (08:53→22:03)
[2019-03-18 08:59] LABS: TOTAL IRON BINDING CAPACITY 239 ug/dL (250-450)
[2019-03-18 12:00] VITALS: BP 109/49
[2019-03-18 15:39] LABS: BG BASE EXCESS 0.5 mmol/L (-2.0-2.0); BG CARBOXYHEMOGLOBIN 0.1 % (0.5-1.5); BG DEOXYHEMOGLOBIN 9.2 % (0.0-5.0); BG FRACTION INSPIRED OXYGEN 21; BG HCO3 ACT 24.1 mmol/L (22.0-26.0); BG METHEMOGLOBIN 1.1 % (0.0-1.5); BG OXYGEN SATURATION 90.7 % (92.0-98.5); BG OXYHEMOGLOBIN 89.6 % (94.0-97.0); BG PCO2 34.8 mmHg (35.0-45.0); BG PH 7.459 (7.350-7.450); BG PO2 59.2 mmHg (75.0-100.0); BG SAMPLE SITE LEFT BRACHIAL; BG TOTAL HEMOGLOBIN 9.7 g/dL (12.0-18.0); BG VENT MODE ROOM AIR
[2019-03-18 16:00] VITALS: BP 109/37
[2019-03-18 17:20] LABS: BG BASE EXCESS 1.4 mmol/L (-2.0-2.0); BG CARBOXYHEMOGLOBIN 0.3 % (0.5-1.5); BG FRACTION INSPIRED OXYGEN 21; BG HCO3 ACT 24.6 mmol/L (22.0-26.0); BG METHEMOGLOBIN 0.7 % (0.0-1.5); BG OXYGEN SATURATION 90.9 % (92.0-98.5); BG PCO2 33.6 mmHg (35.0-45.0); BG PH 7.483 (7.350-7.450); BG PO2 59.1 mmHg (75.0-100.0); BG SAMPLE SITE LEFT RADIAL; BG TOTAL HEMOGLOBIN 9.9 g/dL (12.0-18.0); BG VENT MODE ROOM AIR
[2019-03-18 20:00] VITALS: BP 112/48
[2019-03-19] VITALS: BP 118/55
[2019-03-19 04:00] VITALS: BP 122/53
[2019-03-19] MEDS: METHYLPREDNISOLONE SOD SUCC 40 MG/ML VIAL IV SCH ×3 (06:13→21:04)
[2019-03-19] MEDS: LEVOTHYROXINE SODIUM 25MCG TABLET PO SCH (06:15)
[2019-03-19] MEDS: OMEPRAZOLE 20MG CAPSULE EXTENDED RELEASE PO SCH ×2 (06:15→17:48)
[2019-03-19] MEDS: SUCRALFATE 1 G/10 ML UDC PO SCH ×4 (06:15→21:14)
[2019-03-19 07:31] LABS: CHLORIDE 102 mEq/L (98-107)
[2019-03-19 07:41] LABS: BASOPHILS % 0.1 % (0.0-2.0); HEMATOCRIT. 27.5 % (36.0-48.0); HEMOGLOBIN. 9.3 g/dL (12.0-16.0); LYMPHOCYTES % 8.2 % (20.0-50.0); MEAN CORPUSCULAR HEMOGLOBIN 29.9 pg (28.0-32.0); MEAN CORPUSCULAR VOLUME 88.5 fL (81.0-99.0); MEAN PLATELET VOLUME 8.1 fl (7.4-10.4); MONOCYTES % 3.6 % (2.0-8.0); NEUTROPHILS % 88.1 % (40.0-76.0); PLATELET 364 x1000/uL (130-400); RED BLOOD CELL COUNT 3.11 mill/uL (4.2-5.4); RED CELL DISTRIBUTION WIDTH 14.5 % (11.6-14.6)
[2019-03-19 08:11] VITALS: BP 114/39
[2019-03-19] MEDS: GUAIFENESIN 600MG ER TABLET PO SCH ×2 (08:56→21:14)
[2019-03-19 11:48] VITALS: BP 99/47
[2019-03-19 15:34] VITALS: BP 124/54
[2019-03-19 20:00] VITALS: BP 121/61
[2019-03-20] VITALS: BP 126/62
[2019-03-20 04:00] VITALS: BP 131/57
[2019-03-20] MEDS: SUCRALFATE 1 G/10 ML UDC PO SCH (05:36)
[2019-03-20] MEDS: LEVOTHYROXINE SODIUM 25MCG TABLET PO SCH (05:36)
[2019-03-20] MEDS: OMEPRAZOLE 20MG CAPSULE EXTENDED RELEASE PO SCH (05:36)
[2019-03-20] MEDS: METHYLPREDNISOLONE SOD SUCC 40 MG/ML VIAL IV SCH (05:45)
[2019-03-20 08:00] VITALS: BP 135/67
[2019-03-20] MEDS: GUAIFENESIN 600MG ER TABLET PO SCH (08:03)
== END 2019-03-20 10:09 | disposition home or self-care (01) | DRG 710 ==
LOC: ER 20:02 → EDBEDREQ 20:33 → EDBEDREQTM 22:37 → EDBEDREQ 22:37 → ENRESERV 03-02 00:17 → CVICU 03-02 02:21 → 8WST 03-07 11:20
PROVIDERS: ADMIT Internal Medicine; ATTEND Internal Medicine
PROC: 04L33DZ Occlusion of Hepatic Artery with Intraluminal Device, Percutaneous Approach (ICD-10-PCS; principal; 2019-03-02)
PROC: 05HY33Z Insertion of Infusion Device into Upper Vein, Percutaneous Approach (ICD-10-PCS; 2019-03-02)
PROC: B54NZZA Ultrasonography of Left Upper Extremity Veins, Guidance (ICD-10-PCS; 2019-03-02)
PROC: B4141ZZ Fluoroscopy of Superior Mesenteric Artery using Low Osmolar Contrast (ICD-10-PCS; 2019-03-02)
PROC: 30233N1 Transfusion of Nonautologous Red Blood Cells into Peripheral Vein, Percutaneous Approach (ICD-10-PCS; 2019-03-02)
PROC: 0DJ68ZZ Inspection of Stomach, Via Natural or Artificial Opening Endoscopic (ICD-10-PCS; 2019-03-02)
PROC: B4121ZZ Fluoroscopy of Hepatic Artery using Low Osmolar Contrast (ICD-10-PCS; 2019-03-02)
PROC: B41J1ZZ Fluoroscopy of Other Lower Arteries using Low Osmolar Contrast (ICD-10-PCS; 2019-03-02)
PROC: 0DB78ZX Excision of Stomach, Pylorus, Via Natural or Artificial Opening Endoscopic, Diagnostic (ICD-10-PCS; 2019-03-04)
DX: A41.51 Sepsis due to Escherichia coli [E. coli] (principal); J69.0 Pneumonitis due to inhalation of food and vomit; J96.21 Acute and chronic respiratory failure with hypoxia; E43 Unspecified severe protein-calorie malnutrition; K26.4 Chronic or unspecified duodenal ulcer with hemorrhage; E87.0 Hyperosmolality and hypernatremia; K85.90 Acute pancreatitis without necrosis or infection, unspecified; R16.0 Hepatomegaly, not elsewhere classified; E87.8 Other disorders of electrolyte and fluid balance, not elsewhere classified; D50.0 Iron deficiency anemia secondary to blood loss (chronic); R74.0 Nonspecific elevation of levels of transaminase and lactic acid dehydrogenase [LDH]; E87.6 Hypokalemia; K20.9 Esophagitis, unspecified; K44.9 Diaphragmatic hernia without obstruction or gangrene; K29.70 Gastritis, unspecified, without bleeding; E03.9 Hypothyroidism, unspecified; F03.90 Unspecified dementia, unspecified severity, without behavioral disturbance, psychotic disturbance, mood disturbance, and anxiety; G40.909 Epilepsy, unspecified, not intractable, without status epilepticus; I07.1 Rheumatic tricuspid insufficiency; I10 Essential (primary) hypertension; I27.20 Pulmonary hypertension, unspecified; J40 Bronchitis, not specified as acute or chronic; B96.81 Helicobacter pylori [H. pylori] as the cause of diseases classified elsewhere; J98.11 Atelectasis; R17 Unspecified jaundice; Z90.49 Acquired absence of other specified parts of digestive tract; Z99.81 Dependence on supplemental oxygen; Z68.25 Body mass index [BMI] 25.0-25.9, adult; Z79.899 Other long term (current) drug therapy
CPT/HCPCS: 36415; 36569; 36600; 71045; 74176; 75726; 75898; 76705; 76937; 80048; 80061; 80076; 80305; 80320; 82040; 82375; 82550; 82553; 82805; 83540; 83550; 83605; 83735; 83880; 83930; 83935; 84100; 84132; 84133; 84134; 84145; 84295; 84443; 84484; 85027; 86850; 86900; 86920; 87070; 87077; 87186; 87389; 88305; 88312; 88313; 93005; 93306; 93970; 94640; 94667; 96374; 97110; 97116; 97163; 97164; 97530; 99285; A6261; C1725; C1766; C1769; C1893; C9113; J0696; J1450; J1644; J1956; J2250; J2270; J2354; J2370; J2405; J2543; J2597; J2920; J3010; J3411; J3480; J3490; J7030; J7050; J7060; J7608; J7620; J7626; P9016; Q9967; A4315; G0480